=== PATIENT | female | born 1975 | race Caucasian/White ===

== ENCOUNTER 2017-06-10 18:18 | Emergency (ER) | payer OTHER ==
[~2017-06-10] VITALS: Ht 170.2 cm; Wt 131.8 kg
[~2017-06-10 18:18] MED LIST: ATEN50TA41; HYDR25TA6; LEVO50TA PO; LIOT5TAB10; LIOT5TAB3 PO; LISI-167 PO; LOSA50TA6 PO; METF500T4 PO; OMEP20CA9
[2017-06-10 18:25] VITALS: BP 153/107
[2017-06-10] MEDS ORDERED: LIDOCAINE 1%, 20ML ONE (18:47)
[2017-06-10] MEDS ORDERED: BACITRACIN ZINC OINT 500U/GM, 0.9 GM ONE (18:59)
[2017-06-10] MEDS ORDERED: HYDROcodone/APAP 5/325 TABLET PO ONE (19:00)
[2017-06-10] MEDS ORDERED: IBUPROFEN 200 MG TABLET PO ONE (19:00)
[2017-06-10] MEDS ORDERED: ACETAMINOPHEN 325 MG TABLET PO ONE (19:00)
[2017-06-10] MEDS ORDERED: LIDOCAINE 2%, 20ML INFIL ONE (19:00)
[2017-06-10] MEDS ORDERED: IBUPROFEN 200 MG TABLET ONE ×2 (19:01→19:04)
[2017-06-10] MEDS ORDERED: ACETAMINOPHEN 325 MG TABLET ONE (19:01)
[2017-06-10] MEDS ORDERED: METO200T5 PO (19:12)
[2017-06-10] MEDS ORDERED: GLIP5TAB10 PO (19:12)
== END 2017-06-10 20:00 | disposition home or self-care (01) ==
LOC: ED 19:54
DX: S80.02XA Contusion of left knee, initial encounter (principal); K21.9 Gastro-esophageal reflux disease without esophagitis; E11.9 Type 2 diabetes mellitus without complications; I10 Essential (primary) hypertension; W18.40XA Slipping, tripping and stumbling without falling, unspecified, initial encounter; Y93.01 Activity, walking, marching and hiking; Y92.009 Unspecified place in unspecified non-institutional (private) residence as the place of occurrence of the external cause; Y99.9 Unspecified external cause status
CPT/HCPCS: 99284

== ENCOUNTER 2018-09-22 08:04 | Emergency (ER) | payer OTHER ==
[~2018-09-22] VITALS: Ht 170.2 cm; Wt 135.2 kg
[~2018-09-22 08:04] MED LIST changes: +GLIP5TAB10 PO; +LOSA50TA14 PO; -LOSA50TA6 PO; +METF500T17 PO; -METF500T4 PO; +METO200T47 PO
--- NOTE | 2018-09-22 08:09 | NUR ---
NOT IN LOBBY X1
--- NOTE | 2018-09-22 10:20 | NUR ---
PT TO ROOM FROM [facility], PRESENTS WITH 6/10 CPX1 DAY, INTERMITTENT BUT WORSEING AND MORE FREQUENT THIS AM, PT STATES SHE THOUGT IT WAS ACID REFULX YESTERDAY SO DIDN'T COME TO ED. PT PLACED ON MONITOR. MD AT BEDSIDE.
[2018-09-22 10:24] VITALS: BP 172/102
[2018-09-22 10:51] LABS: BASOPHILS # (AUTO) 0.02 x10^3/uL (0-0.1); BASOPHILS % (AUTO) 0 % (0-1); EOSINOPHILS # (AUTO) 0.12 x10^3/uL (0-0.4); EOSINOPHILS % (AUTO) 1 % (1-7); LYMPHOCYTES # (AUTO) 3.24 x10^3/uL (1-3.4); LYMPHOCYTES % (AUTO) 31 % (22-44); MD NO; MEAN CORPUSCULAR HEMOGLOBIN 27.8 pg (27.0-34.8); MEAN CORPUSCULAR HGB CONC 32.8 g/dL (32.4-35.8); MEAN CORPUSCULAR VOLUME 84.9 fL (80-100); MEAN PLATELET VOLUME 7.9 fL (7.4-10.4); MONOCYTES # (AUTO) 0.44 x10^3/uL (0.2-0.8); MONOCYTES % (AUTO) 4 % (2-9); NEUTROPHILS # (AUTO) 6.75 x10^3/uL (1.8-6.8); NEUTROPHILS % (AUTO) 64 % (42-75); PLATELET COUNT 338 x10^3/uL (130-400); RED BLOOD COUNT 4.57 x10^6/uL (3.82-5.3); RED CELL DISTRIBUTION WIDTH 13.8 % (9.6-15.2)
[2018-09-22 11:02] LABS: ALBUMIN 3.4 g/dL (3.4-5.0); ANION GAP 7 mmol/L (5-15); CALCIUM 8.7 mg/dL (8.5-10.1); CHLORIDE 104 mmol/L (98-107)
[2018-09-22 11:05] LABS: TROPONIN I < 0.015 ng/mL (0.000-0.045)
[2018-09-22] MEDS ORDERED: MAALOX/HYOSCYAMINE/LIDOCAINE 45 ML BTL PO ONE (11:30)
[2018-09-22] MEDS ORDERED: MAALOX/HYOSCYAMINE/LIDOCAINE 45 ML BTL ONE (11:32)
== END 2018-09-22 12:04 | disposition home or self-care (01) ==
LOC: ED 11:05
DX: R07.89 Other chest pain (principal); K21.9 Gastro-esophageal reflux disease without esophagitis; I10 Essential (primary) hypertension; E11.9 Type 2 diabetes mellitus without complications; E03.9 Hypothyroidism, unspecified; Z90.710 Acquired absence of both cervix and uterus; Z90.49 Acquired absence of other specified parts of digestive tract; Z98.890 Other specified postprocedural states
CPT/HCPCS: 36415; 71045; 80048; 82040; 83690; 84484; 85025; 93005; 99284